=== PATIENT | female | born 1990 | race Caucasian/White ===

== ENCOUNTER 2019-05-24 17:49 | Emergency (ER) | payer MEDICAID ==
[~2019-05-24] VITALS: Ht 157.5 cm; Wt 46.5 kg
[2019-05-24 18:25] VITALS: BP 122/75
--- NOTE | 2019-05-24 18:28 | NUR ---
TO LOBBY A/W BED AMBULATORY
--- NOTE | 2019-05-24 19:19 | NUR ---
Pt ambulated to Chair A
[2019-05-24 20:16] VITALS: BP 122/75
--- NOTE | 2019-05-24 20:16 | NUR ---
Patient discharged with v/s stable. Seen, treated, and DC'd by Keron ORLANDO. Written and verbal after care instructions given and explained. Patient alert, oriented and verbalized understanding of instructions. Ambulatory with steady gait. All questions addressed prior to discharge. ID band removed. Patient advised to follow up with PMD. Rx of Ibuprofen, benadryl, and vitamen given. Patient educated on indication of medication including possible reaction and side effects. Opportunity to ask questions provided and answered.
== END 2019-05-24 20:16 | disposition home or self-care (01) ==
LOC: MED 17:49
DX: O99.511 Diseases of the respiratory system complicating pregnancy, first trimester (principal); R05 Cough; R09.81 Nasal congestion; R51 Headache; Z88.1 Allergy status to other antibiotic agents
CPT/HCPCS: 81025; 87804; 99283

== ENCOUNTER 2020-12-28 15:46 | Emergency (ER) | payer MEDICAID ==
[~2020-12-28] VITALS: Ht 157.5 cm; Wt 48.1 kg
[2020-12-28 16:16] VITALS: BP 128/87
[2020-12-28] MEDS ORDERED: FLUORESCEIN OPTH STRIP 1 MG OP SCH (16:54)
[2020-12-28] MEDS ORDERED: TETRACAINE 1% 2 ML AMP INJ SCH (16:55)
--- NOTE | 2020-12-28 17:58 | NUR ---
PATIENT PRESENTS TO ED WITH LEFT UPPER EYELID SWELLING . PT DENIES ANY INJURY TO EYE. DENIES N/V/D; SKIN IS PINK/WARM/DRY; AAOX4 WITH EVEN AND STEADY GAIT; LUNGS CLEAR BL; HR EVEN AND REGULAR; PT DENIES ANY FEVER, CP, SOB, OR COUGH AT THIS TIME; PATIENT STATES PAIN OF 5/10 AT THIS TIME; VSS; PATIENT POSITIONED FOR COMFORT; HOB ELEVATED; BEDRAILS UP X2; BED DOWN. ER MD MADE AWARE OF PT STATUS.
[2020-12-28] MEDS ORDERED: TETRACAINE HCL/PF 0.5% OPTH 4 ML BTL ONE (18:01)
[2020-12-28] MEDS ORDERED: LORA10TA PO (18:28)
[2020-12-28] MEDS ORDERED: DIPH25TA53 PO (18:28)
--- NOTE | 2020-12-28 19:05 | NUR ---
d/c with VSS. d/c education given. opportunity to ask questions given and answered. rx of loratadine and benadryl given.
== END 2020-12-28 19:05 | disposition home or self-care (01) ==
LOC: MED 15:46
DX: H57.12 Ocular pain, left eye (principal); Z88.1 Allergy status to other antibiotic agents
CPT/HCPCS: 99282

== ENCOUNTER 2021-01-10 10:21 | Emergency (ER) | payer MEDICAID ==
[~2021-01-10] VITALS: Ht 157.5 cm; Wt 47.6 kg
[~2021-01-10 10:21] MED LIST: DIPH25TA53 PO; LORA10TA PO
[2021-01-10 10:42] VITALS: BP 129/78
--- NOTE | 2021-01-10 10:46 | NUR ---
PT TO WAIT IN TENT.
--- NOTE | 2021-01-10 11:34 | NUR ---
NO NURSING ASSESMENT, NO NURSING INTERVENTIONS DONE.
--- NOTE | 2021-01-10 11:52 | NUR ---
COLLECTED RAEGAN ARAMBULA AND RAEGAN ALEMAN. WALKED TO LAB.
[2021-01-10 11:53] VITALS: BP 122/71
--- NOTE | 2021-01-10 11:55 | NUR ---
Patient discharged with v/s stable. Written and verbal after care instructions given and explained. Patient verbalized understanding. Ambulatory with steady gait. All questions addressed prior to discharge. Advised to follow up with PMD.
== END 2021-01-10 11:55 | disposition home or self-care (01) ==
LOC: MED 10:21
DX: R06.02 Shortness of breath (principal); Z20.822 Contact with and (suspected) exposure to COVID-19
CPT/HCPCS: 87426; 99283; U0003

== ENCOUNTER 2022-04-22 18:19 | Emergency (ER) | payer MEDICAID ==
[~2022-04-22] VITALS: Ht 157.5 cm; Wt 46.3 kg
[~2022-04-22 18:19] MED LIST changes: +LORA-1526 PO; -LORA10TA PO
[2022-04-22 18:45] VITALS: BP 134/77
[2022-04-22 23:27] LABS: APPEARANCE,URINE CLEAR (CLEAR); BILIRUBIN,URINE NEGATIVE (NEGATIVE); BLOOD, URINE NEGATIVE (NEGATIVE); COLOR,URINE YELLOW (YELLOW); LEUKOCYTE ESTERASE ,URINE NEGATIVE (NEGATIVE); NITRITE, URINE NEGATIVE (NEGATIVE); UGLUCOSE TRACE (NEGATIVE)
[2022-04-22] MEDS ORDERED: ONDANSETRON 4 MG TAB PO ONE (23:35)
[2022-04-22] MEDS ORDERED: ONDA-188 SL (23:38)
[2022-04-22 23:40] VITALS: BP 134/77
== END 2022-04-22 23:40 | disposition home or self-care (01) ==
LOC: MED 18:19
DX: A08.4 Viral intestinal infection, unspecified (principal)
CPT/HCPCS: 81003; 81025; 99283; Q0162

== ENCOUNTER 2022-06-26 14:58 | Emergency (ER) | payer MEDICAID ==
[~2022-06-26] VITALS: Ht 157.5 cm; Wt 46.7 kg
[~2022-06-26 14:58] MED LIST changes: +ONDA-188 SL
[2022-06-26 15:10] VITALS: BP 112/72
--- NOTE | 2022-06-26 15:45 | NUR ---
ASSUMED PATIENT CARE, NURSING ASSESSMENT COMPLETED.
[2022-06-26 15:57] LABS: BASOPHILS % (AUTO) 0.5 % (0.0-2.0); EOSINOPHILS # (AUTO) 0.1 K/uL (0-0.4); HEMATOCRIT 38.7 % (36-48); HEMOGLOBIN 13.1 g/dL (12.0-16.0); LYMPHOCYTES # (AUTO) 1.5 K/uL (2.5-16.5); LYMPHOCYTES % (AUTO) 22.2 % (20.5-51.1); MEAN CORPUSCULAR HEMOGLOBIN 32 pg (27-31); MEAN CORPUSCULAR HGB CONC 34 g/dL (33-37); MEAN CORPUSCULAR VOLUME 93.6 fL (80-94); MONOCYTES # (AUTO) 0.5 K/uL (0.8-1.0); MONOCYTES % (AUTO) 6.8 % (1.7-9.3); NEUTROPHILS # (AUTO) 4.7 K/uL (1.8-7.7); NEUTROPHILS % (AUTO) 68.5 % (42.2-75.2); PLATELET COUNT (AUTO) 241 K/uL (140-450); RED BLOOD CELL COUNT(AUTO) 4.14 MIL/uL (4.20-5.40); RED CELL DISTRIBUTION WIDTH 12.6 % (11.6-13.7); WHITE BLOOD COUNT (AUTO) 6.9 K/uL (4.8-10.8)
[2022-06-26 16:18] LABS: ALBUMIN 4.6 g/dL (3.4-5.0); ANION GAP 13.1 (8-16); CARBON DIOXIDE 26.7 mmol/L (21-32); CREATININE 0.5 mg/dL (0.6-1.3); POTASSIUM 3.8 mmol/L (3.5-5.1); TOTAL BILIRUBIN 0.3 mg/dL (0.0-1.0)
[2022-06-26 16:31] LABS: APPEARANCE,URINE CLEAR (CLEAR); BILIRUBIN,URINE NEGATIVE (NEGATIVE); BLOOD, URINE NEGATIVE (NEGATIVE); COLOR,URINE YELLOW (YELLOW); LEUKOCYTE ESTERASE ,URINE NEGATIVE (NEGATIVE); NITRITE, URINE NEGATIVE (NEGATIVE); UGLUCOSE NEGATIVE (NEGATIVE)
[2022-06-26] MEDS ORDERED: CETI-24 PO (16:35)
[2022-06-26] MEDS ORDERED: IBUP-2213 PO (16:35)
[2022-06-26 17:15] VITALS: BP 105/56
--- NOTE | 2022-06-26 17:16 | NUR ---
Patient discharged with v/s stable. Written and verbal after care instructions given and explained. Patient alert, oriented and verbalized understanding of instructions. Ambulatory with steady gait. All questions addressed prior to discharge. ID band removed. Patient advised to follow up with PMD. Rx of CETIRIZINE, IBUPROFEN given. Patient educated on indication of medication including possible reaction and side effects. Opportunity to ask questions provided and answered.
== END 2022-06-26 17:05 | disposition home or self-care (01) ==
LOC: MED 14:58
DX: J06.9 Acute upper respiratory infection, unspecified (principal); R35.0 Frequency of micturition; Z20.822 Contact with and (suspected) exposure to COVID-19; Z79.1 Long term (current) use of non-steroidal anti-inflammatories (NSAID); Z79.899 Other long term (current) drug therapy
CPT/HCPCS: 36415; 80053; 81003; 81025; 85025; 99283

== ENCOUNTER 2022-09-11 17:47 | Emergency (ER) | payer MEDICAID ==
[~2022-09-11] VITALS: Ht 157.5 cm; Wt 47.6 kg
[~2022-09-11 17:47] MED LIST changes: +CETI-24 PO; +IBUP-2213 PO
[2022-09-11 17:55] VITALS: BP 117/67
[2022-09-11] MEDS ORDERED: IBUPROFEN 600 MG TAB PO ONE (19:15)
--- NOTE | 2022-09-11 19:15 | NUR ---
SEEN AND EXAMINED BY VANIA WITH YARELIS LEONARD CARRIED OUT
[2022-09-11] MEDS ORDERED: CYCL-711 PO (20:43)
[2022-09-11] MEDS ORDERED: IBUP-2213 PO (20:43)
[2022-09-11 20:51] VITALS: BP 117/67
--- NOTE | 2022-09-11 20:51 | NUR ---
Patient discharged with v/s stable. Written and verbal after care instructions given and explained. Patient alert, oriented and verbalized understanding of instructions. Ambulatory with steady gait. All questions addressed prior to discharge. ID band removed. Patient advised to follow up with PMD. Rx of FLEXERIL AND IBUPROFEN given. Patient educated on indication of medication including possible reaction and side effects. Opportunity to ask questions provided and answered.
== END 2022-09-11 20:51 | disposition home or self-care (01) ==
LOC: MED 17:47
DX: S29.011A Strain of muscle and tendon of front wall of thorax, initial encounter (principal); X58.XXXA Exposure to other specified factors, initial encounter; Y93.89 Activity, other specified; Y92.89 Other specified places as the place of occurrence of the external cause; Y99.8 Other external cause status
CPT/HCPCS: 71101; 99283

== ENCOUNTER 2022-09-13 13:24 | Emergency (ER) | payer MEDICAID ==
[~2022-09-13] VITALS: Ht 157.5 cm; Wt 46.3 kg
[~2022-09-13 13:24] MED LIST changes: +CYCL-711 PO
[2022-09-13 13:39] VITALS: BP 123/84
--- NOTE | 2022-09-13 14:12 | NUR ---
Female Theatrical Variety Agent accompanied female patient for BREAST Exam.
[2022-09-13] MEDS ORDERED: KETOROLAC 15 MG/ML VIAL IM ONE (14:15)
--- NOTE | 2022-09-13 14:31 | NUR ---
32/F BIB self from home c/o left sided chest pain s/p fall on 09/11/22. Patient A&Ox4, ambulatory, advised X-rays showing a fracture. States 02/04, sharp/constant, non-radiating pain that worsens with deep breaths. Ibuprofen 1 hour ago without relief. +SOB with deep breaths. Denies dizziness, headache, blurry vision, nausea, vomiting. PMH/Sx/Meds: Denies NKDA
[2022-09-13] MEDS ORDERED: LID5T TP (14:48)
[2022-09-13] MEDS ORDERED: IBUP-1842 PO (14:48)
--- NOTE | 2022-09-13 15:07 | NUR ---
Patient discharged with v/s stable. Written and verbal after care instructions given and explained for Chest Wall Pain, Rib Fracture. Patient alert, oriented and verbalized understanding of instructions. Ambulatory with steady gait. All questions addressed prior to discharge. ID band removed. Patient advised to follow up with PMD. Rx of ibuprofen, Lidocaine 5% patch given. Patient educated on indication of medication including possible reaction and side effects. Opportunity to ask questions provided and answered.
== END 2022-09-13 15:07 | disposition home or self-care (01) ==
LOC: MED 13:24
DX: S22.32XA Fracture of one rib, left side, initial encounter for closed fracture (principal); Z79.899 Other long term (current) drug therapy; W19.XXXA Unspecified fall, initial encounter; Y93.89 Activity, other specified; Y92.89 Other specified places as the place of occurrence of the external cause; Y99.8 Other external cause status
CPT/HCPCS: 81025; 93005; 96372; 99283; J1885